=== PATIENT | female | born 1935 ===

== ENCOUNTER 2021-06-29 10:18 | Emergency (ER) | payer MEDICARE, BC ==
--- NOTE | 2021-06-29 11:12 | Emergency Department Report ---
ED General Adult HPI - General Chief complaint: Extremity Injury, Lower Stated complaint: I do not know why I am here PUI?: No Time Seen by Provider: 06/29/21 11:04 Source: patient, EMS ( EMS documentation not available at time of chart dictation ), RN notes reviewed Mode of arrival: Stretcher Limitations: Other (Dementia and poor historian) - History of Present Illness Initial comments: The patient is an 85-year-old female. She is not known to myself previously. She reportedly has a history of dementia and typically walks with a walker. She is referred to the emergency room from a care facility, [facility]. She is reportedly referred to the emergency room for lower extremity swelling. The patient does not know how long her swelling has been there for. Patient denies physical pain. Patient denies chest pain or shortness of breath. The patient denies urinary symptoms. The patient is not accompanied by friends or family at this time for collateral information or additional information. It is unclear why this patient was referred to the emergency room for asymptomatic lower extremity edema. Location: left, right, lower extremity Improves with: none Worsens with: none Associated Symptoms: denies other symptoms - Related Data Allergies Allergy/AdvReac Type Severity Reaction Status Date / Time No Known Allergies Allergy Verified 06/29/21 10:23 ED Review of Systems ROS: Stated complaint: PEDAL EDEMA Other details as noted in HPI Constitutional: denies: fever ENT: denies: congestion Respiratory: denies: shortness of breath Cardiovascular: edema. denies: chest pain Gastrointestinal: denies: abdominal pain, nausea, vomiting, diarrhea Genitourinary: denies: dysuria Neurological: weakness (Chronic weakness) ED Past Medical Hx - Past Medical History Additional medical history: dementia ED Physical Exam - General Limitations: Other (Dementia) General appearance: in no apparent distress - Head Head exam: Present: atraumatic, normocephalic - Eye Eye exam: Present: normal appearance, EOMI. Absent: nystagmus - ENT ENT exam: Present: normal exam, normal orophraynx, mucous membranes moist, normal external ear exam - Neck Neck exam: Present: normal inspection, full ROM. Absent: tenderness, meningismus - Respiratory Respiratory exam: Present: decreased breath sounds. Absent: respiratory distress, wheezes, rales, rhonchi, stridor - Cardiovascular Cardiovascular Exam: Present: regular rate, normal rhythm, JVD. Absent: bradycardia, tachycardia, irregular rhythm, systolic murmur, diastolic murmur, rubs, gallop - GI/Abdominal GI/Abdominal exam: Present: soft. Absent: distended, tenderness, guarding, rebound, rigid, pulsatile mass - Extremities Exam Extremities exam: Present: normal inspection, full ROM, pedal edema (2-3+ edema in the bilateral lower extremity), other (2+ pulses noted in the bilateral upper and lower extremities. There is no palpable cord. negative Homans sign. Muscular compartments are soft. The pelvis is stable.). Absent: calf tenderness - Back Exam Back exam: Present: normal inspection. Absent: tenderness, CVA tenderness (R), CVA tenderness (L), muscle spasm, paraspinal tenderness, vertebral tenderness - Neurological Exam Neurological exam: Present: alert (The patient is awake and oriented to name. The patient follows commands.), other (No facial droop. Tongue midline. Extraocular movements intact bilaterally. Facial sensation intact to light touch in V1, V2, V3 distribution bilaterally. 5 and a 5 strength in 4 extremities. Sensation intact to light touch in 4 extremities.). Absent: motor sensory deficit - Psychiatric Psychiatric exam: Present: flat affect, other (The patient is demented) - Skin Skin exam: Present: warm, dry, intact, normal color. Absent: rash ED Course Vital Signs 06/29/21 06/29/21 10:21 11:22 Temperature 97.5 F L Pulse Rate 63 Respiratory 16 20 Rate Blood Pressure 152/72 143/69 [Right] O2 Sat by Pulse 93 98 Oximetry - Pulse Oximetry Interpretation Digit-Finger Initial Pulse Oximetry Readin O2 Sat by Pulse Oximetry: 99 Actions Taken: none ED Medical Decision Making - Lab Data Result diagrams: 06/29/21 11:23 06/29/21 11:23 Vital Signs 06/29/21 06/29/21 10:21 11:22 Temperature 97.5 F L Pulse Rate 63 Respiratory 16 20 Rate Blood Pressure 152/72 143/69 [Right] O2 Sat by Pulse 93 98 Oximetry Lab Results 06/29/21 06/29/21 06/29/21 Range/Units 11:23 11:23 11:23 WBC 4.3 L (4.5-11.0) K/mm3 RBC 4.60 (3.65-5.03) M/mm3 Hgb 12.4 (10.1-14.3) gm/dl Hct 37.8 (30.3-42.9) % MCV 82 (79-97) fl MCH 27 L (28-32) pg MCHC 33 (30-34) % RDW 14.3 (13.2-15.2) % Plt Count 164 (140-440) K/mm3 PT 14.3 (12.2-14.9) Sec. INR 1.00 (0.87-1.13) Sodium 141 (137-145) mmol/L Potassium 4.0 (3.6-5.0) mmol/L Chloride 104.5 (98-107) mmol/L Carbon Dioxide 25 (22-30) mmol/L Anion Gap 16 mmol/L BUN 10 (7-17) mg/dL Creatinine 0.8 (0.6-1.2) mg/dL Estimated GFR > 60 ml/min BUN/Creatinine Ratio 13 % Glucose 91 (65-100) mg/dL Calcium 9.0 (8.4-10.2) mg/dL Magnesium 1.90 (1.7-2.3) mg/dL Total Bilirubin 0.40 (0.1-1.2) mg/dL AST 21 (5-40) units/L ALT 13 (7-56) units/L Alkaline Phosphatase 113 (35-129) units/L Total Creatine Kinase 59 (30-135) units/L NT-Pro-B Natriuret Pep 57.43 (0-900) pg/mL Total Protein 6.7 (6.3-8.2) g/dL Albumin 3.7 L (3.9-5) g/dL Albumin/Globulin Ratio 1.2 % - EKG Data -: EKG Interpreted by Md EKG shows normal: sinus rhythm - EKG Data 06/29/21 12:07 The EKG is interpreted at 11: 14 Sinus rhythm, rate 65 bpm. Left bundle branch block, left axis deviation, nor mal P wave axis, first-degree AV block, QTC 4 7 2 ms. Low voltage in the lateral leads. Abnormal EKG. Not a STEMI. There is no prior EKG available for comparison. - Radiology Data Radiology results: pending, report reviewed, image reviewed DUPLEX DOPPLER LOWER EXTREMITY VEINS, BILATERAL INDICATION / CLINICAL INFORMATION: Bilateral lower extremity swelling. History of dementia. TECHNIQUE: Duplex doppler imaging was performed through the veins of both lower extremities using venous compression and other maneuvers. COMPARISON: None available. FINDINGS: RIGHT COMMON FEMORAL VEIN: Negative. RIGHT FEMORAL VEIN: Negative. RIGHT POPLITEAL VEIN: Negative. RIGHT CALF VEINS: Negative. LEFT COMMON FEMORAL VEIN: Negative. LEFT FEMORAL VEIN: Negative. LEFT POPLITEAL VEIN: Negative. LEFT CALF VEINS: Negative. ADDITIONAL FINDINGS: None. IMPRESSION: No sonographic evidence for DVT in either lower extremity. Signer Name: Chang Roe MD Signed: 06/29/2021 11:02 AM Workstation Name: [id number] CHEST 1 VIEW 06/29/2021 11:58 AM INDICATION / CLINICAL INFORMATION: b/l lower ext swelling. COMPARISON: None available. FINDINGS: SUPPORT DEVICES: None. H EART / MEDIASTINUM: No acute findings. Calcified mediastinal nodes in keeping with previous granulomatous exposure. LUNGS / PLEURA: No acute findings. Scattered calcified granulomata. No pneumothorax. ADDITIONAL FINDINGS: There is elevation of the right hemidiaphragm. IMPRESSION: 1. No acute findings. Signer Name: Red Cordova MD Signed: 06/29/2021 11:15 AM Workstation Name: [id number] - Medical Decision Making Differential diagnosis, including but not limited to: Dependent edema, malnutrition, renal insufficiency, hepatic insufficiency, DVT, congestive heart failure, dementia Assessment and plan: 85-year-old female, who is not currently tachycardic, tachypneic or hypoxic, who has clear lungs, without crackles or rales, without JVD, unremarkable hepatic and renal function, minimal hypoalbuminemia, unremarkable electrolytes and CBC otherwise, no DVT noted on lower extremity DVT study, and chest x-ray which does not show evidence of congestive heart failure, or volume overload. Patient resting comfortably in stretcher, and in no acute distress. Malnutrition/hypoalbuminemia may be contributing to these presentation, as well as poor overall mobility. However, an emergent medical condition does not appear to be present at this time. Compression stockings, modification to diet, outpatient follow-up. Given advanced age, dementia, would not initiate diuretic therapy at this time, but would attempt conservative measures. Critical care attestation.: If time is entered above; I have spent that time in minutes in the direct care of this critically ill patient, excluding procedure time. ED Disposition Clinical Impression: Lower extremity edema, Dementia Disposition: [facility] Is pt being admited?: No Does the pt Need Aspirin: No Condition: Good Instructions: Edema Additional Instructions: The patient was not found to have an emergent medical condition in the emergency room today. Laboratory studies demonstrated mild hypoalbuminemia, but otherwise unremarkable renal and hepatic function. Chest x-ray and laboratory studies did not corroborate congestive heart failure, and a lower extremity DVT study did not demonstrate DVT. Recommend ambulation as tolerated, compression stockings, and improvement in diet to include more protein to improve hypoalbuminemia. We recommend follow-up with your primary care doctor within the next week. Please return to the emergency room right away with new pain, worsened pain, migration of pain, projectile vomiting, change in mental status, confusion, inability tolerate liquid feeds, new, worsened or different symptoms not present on the initial emergency room evaluation Referrals: [facility] [Provider Group] - 3-5 Days
[2021-06-29 11:37] LABS: Hematocrit 37.8 % (30.3-42.9); Hemoglobin 12.4 gm/dl (10.1-14.3); Mean Corpuscular HGB Conc 33 % (30-34); Mean Corpuscular Volume 82 fl (79-97); Platelet Count 164 K/mm3 (140-440); Red Cell Distribution Width 14.3 % (13.2-15.2)
[2021-06-29 11:59] LABS: Alanine Aminotransferase 13 units/L (7-56); Albumin 3.7 g/dL (3.9-5); BUN/Creatinine Ratio 13; Blood Urea Nitrogen 10 mg/dL (7-17); Hemolysis Index 9
--- NOTE | 2021-06-29 12:08 | Vascular Lab Report ---
DUPLEX DOPPLER LOWER EXTREMITY VEINS, BILATERAL INDICATION / CLINICAL INFORMATION: Bilateral lower extremity swelling. History of dementia. TECHNIQUE: Duplex doppler imaging was performed through the veins of both lower extremities using venous josey keith and other maneuvers. COMPARISON: None available. FINDINGS: RIGHT COMMON FEMORAL VEIN: Negative. RIGHT FEMORAL VEIN: Negative. RIGHT POPLITEAL VEIN: Negative. RIGHT CALF VEINS: Negative. LEFT COMMON FEMORAL VEIN: Negative. LEFT FEMORAL VEIN: Negative. LEFT POPLITEAL VEIN: Negative. LEFT CALF VEINS: Negative. ADDITIONAL FINDINGS: None. IMPRESSION: No sonographic evidence for DVT in either lower extremity. Signer Name: Chang Roe MD Signed: 06/29/2021 12:02 PM Workstation Name: [id number]
--- NOTE | 2021-06-29 12:19 | XRay Report ---
CHEST 1 VIEW 06/29/2021 11:58 AM INDICATION / CLINICAL INFORMATION: b/l lower ext swelling. COMPARISON: None available. FINDINGS: SUPPORT DEVICES: None. HEART / MEDIASTINUM: No acute findings. Calcified mediastinal nodes in keeping with previous granulom atous exposure. LUNGS / PLEURA: No acute findings. Scattered calcified granulomata. No pneumothorax. ADDITIONAL FINDINGS: There is elevation of the right hemidiaphragm. IMPRESSION: 1. No acute findings. Signer Name: Red Cordova MD Signed: 06/29/2021 12:15 PM Workstation Name: [id number]
[2021-06-29 16:48] VITALS: BP 133/80
--- NOTE | 2021-06-30 09:02 | Electrocardiograph Report ---
[facility] Test Date: 2021-06-29 Test Time: 11:14:09 Pat Name: MARCELLE DAHL Department: Room: Gender: F Front Desk Representative: KYLE : 1935 Requested By: KYLE ULRICH Order Number: [id number] Reading MD: Gabriele Celaya Measurements Intervals [place] Rate: 65 P: 55 RI: 203 QRS: -28 QRSD: 141 T: 60 QT: 455 QTc: 472 Interpretive Statements Sinus rhythm Left bundle branch block Probable anterolateral infarct, old No previous ECG available for comparison Electronically Signed On 06-30-2021 9:02:22 EST by Gabriele Celaya
== END 2021-06-29 22:10 ==
LOC: ED 10:18
DX: R60.0 Localized edema (principal); F03.90 Unspecified dementia, unspecified severity, without behavioral disturbance, psychotic disturbance, mood disturbance, and anxiety
CPT/HCPCS: 36415; 71045; 80053; 82550; 83735; 83880; 85027; 85610; 93005; 93010; 93970; 99285